=== PATIENT | male | born 1975 | race Caucasian/White ===

== ENCOUNTER → 2020-11-28 | Outpatient (CLI) | payer OTHER | LOC: EMI 11-24 08:45 → MRI 13:24 | DX: S32.020A Wedge compression fracture of second lumbar vertebra, initial encounter for closed fracture (principal); M51.36 Other intervertebral disc degeneration, lumbar region; X58.XXXA Exposure to other specified factors, initial encounter | CPT/HCPCS: 72148 ==

== ENCOUNTER → 2020-12-09 | Outpatient (CLI) | payer OTHER | LOC: CT 08:23 | DX: S32.020A Wedge compression fracture of second lumbar vertebra, initial encounter for closed fracture (principal); X58.XXXA Exposure to other specified factors, initial encounter | CPT/HCPCS: 72131 ==

== ENCOUNTER → 2021-02-17 | Outpatient (CLI) | payer OTHER | LOC: KOH-I 15:00 | DX: M48.56XA Collapsed vertebra, not elsewhere classified, lumbar region, initial encounter for fracture (principal) | CPT/HCPCS: 72131 ==

== ENCOUNTER → 2021-05-08 | Outpatient (CLI) | payer OTHER | LOC: KOH-I 13:53 | DX: M51.16 Intervertebral disc disorders with radiculopathy, lumbar region (principal); M48.061 Spinal stenosis, lumbar region without neurogenic claudication; R93.7 Abnormal findings on diagnostic imaging of other parts of musculoskeletal system | CPT/HCPCS: 72148 ==

== ENCOUNTER → 2021-07-16 | Outpatient (CLI) | payer OTHER | LOC: ECHO 07-15 08:30 → HEART 5 07:23 | DX: I20.8 Other forms of angina pectoris (principal); R06.02 Shortness of breath | CPT/HCPCS: 78452; A9502; J2785 ==

== ENCOUNTER → 2021-08-05 | Outpatient (CLI) | payer OTHER | LOC: ECHO 07-16 09:45 | DX: I20.8 Other forms of angina pectoris (principal); R06.02 Shortness of breath; I51.7 Cardiomegaly | CPT/HCPCS: ECHO; 93306 ==

== ENCOUNTER 2021-09-05 15:44 | Inpatient (IN) | payer OTHER ==
[~2021-09-05] VITALS: Ht 180.3 cm; Wt 127.0 kg
[2021-09-05 17:22] LABS: HEMOGLOBIN 12.6 gm/dl (14.0-17.5); RED BLOOD COUNT 4.62 M/UL (4.20-5.50); WHITE BLOOD COUNT 15.6 K/UL (4.5-11.0)
[2021-09-05 19:14] LABS: BUN/CREATININE RATIO 18 (0-10)
[2021-09-06] MEDS ORDERED: NOVOLOG 10100 UNITS1 INJ (03:41)
[2021-09-06] MEDS ORDERED: LISINOPRIL40 MG PO (03:41)
[2021-09-06] MEDS ORDERED: LIPITOR40 MG PO (03:42)
[2021-09-06] MEDS ORDERED: NORVASC5 MG PO (03:44)
[2021-09-06] MEDS ORDERED: METOPROLOL TART50 MG PO (03:45)
[2021-09-06] MEDS ORDERED: ADULT LOW DOSE81 MG PO (03:46)
[2021-09-06 08:34] LABS: ACINETOBACTER BAUMANNII Not Detected (Negative); CANDIDA ALBICANS Not Detected (Negative); CANDIDA KRUSEI Not Detected (Negative); CANDIDA TROPICALIS Not Detected (Negative); ENTEROCOCCUS Not Detected (Negative); ESCHERICHIA COLI Not Detected (Negative); HAEMOPHILUS INFLUENZAE Not Detected (Negative); KLEBSIELLA OXYTOCA Not Detected (Negative); KLEBSIELLA PNEUMONIAE Not Detected (Negative); KPC-CARBAPENEM-RESISTANCE GENE Not Detected (Negative); PROTEUS Not Detected (Negative); PSEUDOMONAS AERUGINOSA Not Detected (Negative); SERRATIA MARCESANS Not Detected (Negative); STREP AGALACTIAE (GROUP B) Not Detected (Negative); STREP PYOGENES (GROUP A) Not Detected (Negative); STREPTOCOCCUS Not Detected (Negative); mecA (METHICILLIN RESIST GENE Not Detected (Negative); vanA/B (VANCOMYCIN RESIST GENE Not Detected (Negative)
[2021-09-06 10:04] LABS: STAPHYLOCOCCUS DETECTED (Negative); STAPHYLOCOCCUS AUREUS DETECTED (Negative)
[2021-09-07 05:56] LABS: WHITE BLOOD COUNT 15.3 K/UL (4.5-11.0)
[2021-09-07 06:19] LABS: BUN/CREATININE RATIO 16 (0-10)
[2021-09-07 06:24] LABS: HEMOGLOBIN 10.3 gm/dl (14.0-17.5); RED BLOOD COUNT 3.83 M/UL (4.20-5.50)
[2021-09-07] MEDS ORDERED: LANTUS SOL100 UNIT/1 SQ (14:38)
[2021-09-07] MEDS ORDERED: CYCLOBENZAPRINE5 MG PO (14:39)
[2021-09-07] MEDS ORDERED: GABAPENTIN300 MG PO (14:40)
[2021-09-08 07:37] LABS: HEMOGLOBIN 10.4 gm/dl (14.0-17.5); RED BLOOD COUNT 4.03 M/UL (4.20-5.50); WHITE BLOOD COUNT 12.8 K/UL (4.5-11.0)
[2021-09-08 07:58] LABS: BUN/CREATININE RATIO 16 (0-10)
[2021-09-09 05:36] LABS: HEMOGLOBIN 9.6 gm/dl (14.0-17.5); RED BLOOD COUNT 3.68 M/UL (4.20-5.50); WHITE BLOOD COUNT 10.2 K/UL (4.5-11.0)
--- NOTE | 2021-09-09 11:32 | NUR ---
dr. perez seen patient and aware of the left foot condition
[2021-09-10 07:04] LABS: HEMOGLOBIN 10.6 gm/dl (14.0-17.5); RED BLOOD COUNT 3.96 M/UL (4.20-5.50)
[2021-09-10 07:06] LABS: WHITE BLOOD COUNT 13.2 K/UL (4.5-11.0)
[2021-09-11 06:37] LABS: HEMOGLOBIN 10.3 gm/dl (14.0-17.5); RED BLOOD COUNT 3.83 M/UL (4.20-5.50); WHITE BLOOD COUNT 10.4 K/UL (4.5-11.0)
[2021-09-12 09:56] LABS: HEMOGLOBIN 9.9 gm/dl (14.0-17.5); RED BLOOD COUNT 3.67 M/UL (4.20-5.50); WHITE BLOOD COUNT 7.9 K/UL (4.5-11.0)
[2021-09-12 10:14] LABS: BUN/CREATININE RATIO 13 (0-10)
--- NOTE | 2021-09-12 21:55 | NUR ---
ATTEMPTED TO CALL DR. DOS SANTOS ABOUT CHANGING PT'S DRESSING. CALL WENT STRAIGHT TO VOICE MAIL. LEFT MESSAGE. WILL CONTINUE TO MONITOR PT.
[2021-09-13 08:59] LABS: HEMOGLOBIN 10.4 gm/dl (14.0-17.5); RED BLOOD COUNT 3.99 M/UL (4.20-5.50); WHITE BLOOD COUNT 6.4 K/UL (4.5-11.0)
[2021-09-13 09:18] LABS: BUN/CREATININE RATIO 10 (0-10)
[2021-09-14 08:02] LABS: HEMOGLOBIN 10.1 gm/dl (14.0-17.5); RED BLOOD COUNT 3.83 M/UL (4.20-5.50); WHITE BLOOD COUNT 8.2 K/UL (4.5-11.0)
[2021-09-14 08:11] LABS: BUN/CREATININE RATIO 15 (0-10)
[2021-09-15 07:34] LABS: HEMOGLOBIN 10.6 gm/dl (14.0-17.5); RED BLOOD COUNT 4.06 M/UL (4.20-5.50); WHITE BLOOD COUNT 6.6 K/UL (4.5-11.0)
[2021-09-15 08:01] LABS: BUN/CREATININE RATIO 14 (0-10)
[2021-09-16] MEDS ORDERED: INVANZ 1 GM VIAL1 GM IV (16:11)
== END 2021-09-16 18:39 | disposition home or self-care (01) | DRG 853 ==
LOC: ER1 15:44 → M/S 09-06 00:33 → CDU 09-06 00:33 → M/S 09-06 02:43
PROVIDERS: Nurse Practitioner; Physician Assistant; Physician Assistant Medical; Podiatrist Foot & Ankle Surgery; ADMIT Internal Medicine
PROC: 0L9W0ZZ Drainage of Left Foot Tendon, Open Approach (ICD-10-PCS; 2021-09-09)
PROC: 0QBH0ZX Excision of Left Tibia, Open Approach, Diagnostic (ICD-10-PCS; 2021-09-13)
PROC: 0QBH0ZZ Excision of Left Tibia, Open Approach (ICD-10-PCS; 2021-09-13)
PROC: 0S9N0ZZ Drainage of Left Metatarsal-Phalangeal Joint, Open Approach (ICD-10-PCS; principal; 2021-09-13 17:04)
PROC: 02HV33Z Insertion of Infusion Device into Superior Vena Cava, Percutaneous Approach (ICD-10-PCS; 2021-09-16)
PROC: B548ZZA Ultrasonography of Superior Vena Cava, Guidance (ICD-10-PCS; 2021-09-16)
DX: A41.01 Sepsis due to Methicillin susceptible Staphylococcus aureus (principal); A48.0 Gas gangrene; L03.116 Cellulitis of left lower limb; L02.612 Cutaneous abscess of left foot; Z20.822 Contact with and (suspected) exposure to COVID-19; M86.172 Other acute osteomyelitis, left ankle and foot; N17.9 Acute kidney failure, unspecified; E11.52 Type 2 diabetes mellitus with diabetic peripheral angiopathy with gangrene; E87.1 Hypo-osmolality and hyponatremia; R65.20 Severe sepsis without septic shock; E11.22 Type 2 diabetes mellitus with diabetic chronic kidney disease; M10.9 Gout, unspecified; G89.29 Other chronic pain; E11.65 Type 2 diabetes mellitus with hyperglycemia; N18.30 Chronic kidney disease, stage 3 unspecified; E78.5 Hyperlipidemia, unspecified; I12.9 Hypertensive chronic kidney disease with stage 1 through stage 4 chronic kidney disease, or unspecified chronic kidney disease; E87.5 Hyperkalemia; E11.69 Type 2 diabetes mellitus with other specified complication; Z79.4 Long term (current) use of insulin; Z79.82 Long term (current) use of aspirin; Z88.1 Allergy status to other antibiotic agents; Z88.0 Allergy status to penicillin
CPT/HCPCS: 36415; 71045; 73620; 73701; 73718; 80048; 80053; 80202; 81001; 82009; 82550; 82553; 82962; 83605; 83735; 83874; 84439; 84443; 84484; 84550; 85025; 85027; 85379; 85610; 85652; 85730; 86140; 87040; 87070; 87077; 87150; 87186; 87205; 93005; 93926; 94664; 94760; 96365; 96375; 99285; C1751; J1100; J1335; J1650; J1885; J1956; J2001; J2020; J2250; J2270; J2370; J2405; J2704; J2795; J3010; J3370; J7030; J7050; J7070; J7120; Q9967; U0002

== ENCOUNTER → 2021-09-17 | Outpatient (CLI) | payer OTHER ==
[~2021-09-17] MED LIST: ADULT LOW DOSE81 MG PO; CYCLOBENZAPRINE5 MG PO; GABAPENTIN300 MG PO; INVANZ 1 GM VIAL1 GM IV; LANTUS SOL100 UNIT/1 SQ; LIPITOR40 MG PO; LISINOPRIL40 MG PO; METOPROLOL TART50 MG PO; NORVASC5 MG PO; NOVOLOG 10100 UNITS1 INJ
== END ==
LOC: OPSV 07:00
DX: L03.116 Cellulitis of left lower limb (principal); A41.9 Sepsis, unspecified organism; E11.9 Type 2 diabetes mellitus without complications; I12.9 Hypertensive chronic kidney disease with stage 1 through stage 4 chronic kidney disease, or unspecified chronic kidney disease; E11.22 Type 2 diabetes mellitus with diabetic chronic kidney disease; N18.30 Chronic kidney disease, stage 3 unspecified; E87.1 Hypo-osmolality and hyponatremia; E78.5 Hyperlipidemia, unspecified; M54.9 Dorsalgia, unspecified; G89.29 Other chronic pain
CPT/HCPCS: 96365; J1335

== ENCOUNTER → 2021-09-18 | Outpatient (CLI) | payer OTHER | LOC: OPSV 07:00 | DX: M86.171 Other acute osteomyelitis, right ankle and foot (principal) | CPT/HCPCS: 96365; J1335 ==

== ENCOUNTER → 2021-09-19 | Outpatient (CLI) | payer OTHER | LOC: OPSV 07:20 | DX: M86.171 Other acute osteomyelitis, right ankle and foot (principal) | CPT/HCPCS: 96365 ==

== ENCOUNTER → 2021-09-20 | Outpatient (CLI) | payer OTHER | LOC: OPSV 07:16 | DX: M86.171 Other acute osteomyelitis, right ankle and foot (principal) | CPT/HCPCS: 96365; J1335 ==

== ENCOUNTER → 2021-09-20 | Outpatient (CLI) | payer OTHER | LOC: OPSV 18:49 | DX: M86.171 Other acute osteomyelitis, right ankle and foot (principal) | CPT/HCPCS: G0463; J1335 ==

== ENCOUNTER → 2021-09-21 | Outpatient (CLI) | payer OTHER | LOC: OPSV 07:00 | DX: M86.171 Other acute osteomyelitis, right ankle and foot (principal) | CPT/HCPCS: 96365; J1335 ==

== ENCOUNTER → 2021-09-22 | Outpatient (CLI) | payer OTHER | LOC: EROP 02:59 → ER1 18:59 → EDSTATUS 19:11 | DX: M86.171 Other acute osteomyelitis, right ankle and foot (principal) | CPT/HCPCS: G0463 ==

== ENCOUNTER → 2021-09-22 | Outpatient (CLI) | payer OTHER | LOC: OPSV 07:00 | DX: M86.171 Other acute osteomyelitis, right ankle and foot (principal) | CPT/HCPCS: 96365; J1335 ==

== ENCOUNTER → 2021-09-23 | Outpatient (CLI) | payer OTHER | LOC: OPSV 07:00 | DX: M86.171 Other acute osteomyelitis, right ankle and foot (principal) | CPT/HCPCS: 96365; J1335 ==

== ENCOUNTER → 2021-09-24 | Outpatient (CLI) | payer OTHER | LOC: OPSV 07:00 | DX: M86.171 Other acute osteomyelitis, right ankle and foot (principal) | CPT/HCPCS: 96365; J1335 ==

== ENCOUNTER → 2021-09-25 | Outpatient (CLI) | payer OTHER | LOC: OPSV 07:11 | DX: M86.171 Other acute osteomyelitis, right ankle and foot (principal) | CPT/HCPCS: 96365; J1335 ==

== ENCOUNTER → 2021-09-26 | Outpatient (CLI) | payer OTHER | LOC: EROP 18:38 → OPSV 19:00 | DX: M86.171 Other acute osteomyelitis, right ankle and foot (principal) | CPT/HCPCS: G0463 ==

== ENCOUNTER → 2021-09-27 | Outpatient (CLI) | payer OTHER | LOC: OPSV 18:35 | DX: M86.171 Other acute osteomyelitis, right ankle and foot (principal) | CPT/HCPCS: G0463 ==

== ENCOUNTER → 2021-09-27 | Outpatient (CLI) | payer OTHER ==
[~2021-09-27] VITALS: Ht 180.3 cm; Wt 127.0 kg
== END ==
LOC: OPSV 07:00 → EROP 07:00
DX: M86.171 Other acute osteomyelitis, right ankle and foot (principal)
CPT/HCPCS: 96365; J1335

== ENCOUNTER → 2021-09-28 | Outpatient (CLI) | payer OTHER | LOC: OPSV 07:00 | DX: M86.171 Other acute osteomyelitis, right ankle and foot (principal) | CPT/HCPCS: 96365; J1335 ==

== ENCOUNTER → 2021-09-29 | Outpatient (CLI) | payer OTHER | LOC: OPSV 07:00 | DX: M86.171 Other acute osteomyelitis, right ankle and foot (principal) | CPT/HCPCS: 85652; 86140; 96365; J1335 ==

== ENCOUNTER → 2021-09-30 | Outpatient (CLI) | payer OTHER | LOC: OPSV 07:00 | DX: E11.69 Type 2 diabetes mellitus with other specified complication (principal); M86.9 Osteomyelitis, unspecified; L03.116 Cellulitis of left lower limb; L02.612 Cutaneous abscess of left foot; I96 Gangrene, not elsewhere classified; E78.5 Hyperlipidemia, unspecified; E11.22 Type 2 diabetes mellitus with diabetic chronic kidney disease; I12.9 Hypertensive chronic kidney disease with stage 1 through stage 4 chronic kidney disease, or unspecified chronic kidney disease; N18.30 Chronic kidney disease, stage 3 unspecified; G89.29 Other chronic pain; M54.9 Dorsalgia, unspecified | CPT/HCPCS: 96365; J1335 ==

== ENCOUNTER → 2021-10-01 | Outpatient (CLI) | payer OTHER ==
[~2021-10-01] VITALS: Ht 180.3 cm; Wt 127.0 kg
== END ==
LOC: EROP 12:10 → OPSV 19:00
DX: M86.171 Other acute osteomyelitis, right ankle and foot (principal)
CPT/HCPCS: 96365; J1335

== ENCOUNTER → 2021-10-02 | Outpatient (CLI) | payer OTHER | LOC: OPSV 07:00 | DX: M86.171 Other acute osteomyelitis, right ankle and foot (principal) | CPT/HCPCS: 96365; J1335 ==

== ENCOUNTER → 2021-10-04 | Outpatient (CLI) | payer OTHER ==
[~2021-10-04] VITALS: Ht 180.3 cm; Wt 127.0 kg
== END ==
LOC: OPSV 07:00
DX: M86.171 Other acute osteomyelitis, right ankle and foot (principal)
CPT/HCPCS: 96365; J1335

== ENCOUNTER → 2021-10-05 | Outpatient (CLI) | payer OTHER | LOC: OPSV 07:09 | DX: M86.171 Other acute osteomyelitis, right ankle and foot (principal) | CPT/HCPCS: 96365; J1335 ==

== ENCOUNTER → 2021-10-06 | Outpatient (CLI) | payer OTHER ==
[~2021-10-06] VITALS: Ht 180.3 cm; Wt 127.0 kg
== END ==
LOC: OPSV 07:00
DX: A41.9 Sepsis, unspecified organism (principal); E11.69 Type 2 diabetes mellitus with other specified complication; M86.171 Other acute osteomyelitis, right ankle and foot; I12.9 Hypertensive chronic kidney disease with stage 1 through stage 4 chronic kidney disease, or unspecified chronic kidney disease; E11.22 Type 2 diabetes mellitus with diabetic chronic kidney disease; N18.30 Chronic kidney disease, stage 3 unspecified; E78.5 Hyperlipidemia, unspecified
CPT/HCPCS: 96365; J1335

== ENCOUNTER → 2021-10-07 | Outpatient (CLI) | payer OTHER ==
[2021-10-07 09:00] LABS: HEMOGLOBIN 11.2 gm/dl (14.0-17.5); RED BLOOD COUNT 4.15 M/UL (4.20-5.50); WHITE BLOOD COUNT 6.7 K/UL (4.5-11.0)
== END ==
LOC: OPSV 07:00
PROVIDERS: Internal Medicine Infectious Disease
DX: M86.171 Other acute osteomyelitis, right ankle and foot (principal)
CPT/HCPCS: 85027; 85652; 86140; 96365; J1335

== ENCOUNTER → 2021-10-08 | Outpatient (CLI) | payer OTHER | LOC: OPSV 07:00 | DX: M86.171 Other acute osteomyelitis, right ankle and foot (principal) | CPT/HCPCS: 96365; J1335 ==

== ENCOUNTER → 2021-10-12 | Outpatient (CLI) | payer OTHER | LOC: OPSV 07:00 | DX: M86.9 Osteomyelitis, unspecified (principal) | CPT/HCPCS: 96365 ==

== ENCOUNTER → 2021-10-13 | Outpatient (CLI) | payer OTHER | LOC: OPSV 07:00 | DX: M86.171 Other acute osteomyelitis, right ankle and foot (principal) | CPT/HCPCS: 96365; J1335 ==

== ENCOUNTER → 2021-10-14 | Outpatient (CLI) | payer OTHER ==
[~2021-10-14] VITALS: Ht 180.3 cm; Wt 127.0 kg
[2021-10-14 09:12] LABS: HEMOGLOBIN 11.9 gm/dl (14.0-17.5); RED BLOOD COUNT 4.44 M/UL (4.20-5.50); WHITE BLOOD COUNT 7.4 K/UL (4.5-11.0)
== END ==
LOC: OPSV 07:00
PROVIDERS: Internal Medicine Infectious Disease
DX: M86.171 Other acute osteomyelitis, right ankle and foot (principal)
CPT/HCPCS: 85027; 85652; 86140; 96365; J1335

== ENCOUNTER → 2021-10-15 | Outpatient (CLI) | payer OTHER ==
[~2021-10-15] VITALS: Ht 180.3 cm; Wt 127.0 kg
== END ==
LOC: OPSV 07:00
DX: M86.171 Other acute osteomyelitis, right ankle and foot (principal)
CPT/HCPCS: 96365; J1335

== ENCOUNTER → 2021-10-19 | Outpatient (CLI) | payer OTHER | LOC: OPSV 07:00 | DX: M86.8X7 Other osteomyelitis, ankle and foot (principal) | CPT/HCPCS: J1335 ==

== ENCOUNTER → 2021-10-20 | Outpatient (CLI) | payer OTHER ==
[~2021-10-20] VITALS: Ht 180.3 cm; Wt 127.0 kg
== END ==
LOC: OPSV 06:59
DX: A41.9 Sepsis, unspecified organism (principal); E11.69 Type 2 diabetes mellitus with other specified complication; M86.171 Other acute osteomyelitis, right ankle and foot; I12.9 Hypertensive chronic kidney disease with stage 1 through stage 4 chronic kidney disease, or unspecified chronic kidney disease; E11.22 Type 2 diabetes mellitus with diabetic chronic kidney disease; N18.30 Chronic kidney disease, stage 3 unspecified; M54.9 Dorsalgia, unspecified; G89.29 Other chronic pain
CPT/HCPCS: 96365; J1335

== ENCOUNTER → 2021-10-21 | Outpatient (CLI) | payer OTHER | LOC: OPSV 09-20 07:09 | DX: E11.69 Type 2 diabetes mellitus with other specified complication (principal); M86.9 Osteomyelitis, unspecified; L02.612 Cutaneous abscess of left foot | CPT/HCPCS: 87070; 87205; 96365; J1335 ==

== ENCOUNTER → 2021-10-23 | Outpatient (CLI) | payer OTHER ==
[~2021-10-23] VITALS: Ht 180.3 cm; Wt 127.0 kg
[2021-10-23 07:45] LABS: HEMOGLOBIN 11.4 gm/dl (14.0-17.5); RED BLOOD COUNT 4.33 M/UL (4.20-5.50); WHITE BLOOD COUNT 6.8 K/UL (4.5-11.0)
== END ==
LOC: OPSV 06:58
PROVIDERS: Podiatrist Foot & Ankle Surgery
DX: M86.171 Other acute osteomyelitis, right ankle and foot (principal); Z00.00 Encounter for general adult medical examination without abnormal findings
CPT/HCPCS: 85027; 85652; 86140; 96365; J1335

== ENCOUNTER → 2021-10-25 | Outpatient (CLI) | payer OTHER ==
[~2021-10-25] VITALS: Ht 180.3 cm; Wt 127.0 kg
== END ==
LOC: EROP 06:58 → OPSV 07:00
DX: M86.171 Other acute osteomyelitis, right ankle and foot (principal)
CPT/HCPCS: 96365; J1335

== ENCOUNTER → 2021-10-27 | Outpatient (CLI) | payer OTHER ==
[~2021-10-27] VITALS: Ht 180.3 cm; Wt 127.0 kg
== END ==
LOC: OPSV 07:00
DX: M86.9 Osteomyelitis, unspecified (principal)
CPT/HCPCS: 96365; J1335

== ENCOUNTER → 2021-10-28 | Outpatient (CLI) | payer OTHER ==
[~2021-10-28] VITALS: Ht 180.3 cm; Wt 127.0 kg
== END ==
LOC: OPSV 07:00
DX: S91.302A Unspecified open wound, left foot, initial encounter (principal)
CPT/HCPCS: 96365; J1335

== ENCOUNTER → 2021-10-29 | Outpatient (CLI) | payer OTHER ==
[~2021-10-29] VITALS: Ht 180.3 cm; Wt 127.0 kg
== END ==
LOC: OPSV 07:00
DX: M86.9 Osteomyelitis, unspecified (principal)
CPT/HCPCS: 96365; J1335

== ENCOUNTER → 2021-11-03 | Outpatient (CLI) | payer OTHER ==
[~2021-11-03] VITALS: Ht 180.3 cm; Wt 127.0 kg
[2021-11-03 07:42] LABS: HEMOGLOBIN 12.4 gm/dl (14.0-17.5); RED BLOOD COUNT 4.73 M/UL (4.20-5.50); WHITE BLOOD COUNT 4.4 K/UL (4.5-11.0)
== END ==
LOC: OPSV 07:00
PROVIDERS: Internal Medicine Infectious Disease
DX: S91.302A Unspecified open wound, left foot, initial encounter (principal)
CPT/HCPCS: 85027; 85652; 86140; 96365; J1335

== ENCOUNTER → 2021-11-18 | Outpatient (CLI) | payer OTHER ==
[~2021-11-18] MED LIST changes: +BACTRIM DS TAB1 EACH PO; +CBD CAPSULE PO; +CYCLOBENZAPRINE10 MG PO; +CYMBALTA60 MG PO; +LISINOPRIL10 MG PO; +WELLBUTRIN SR150 M1 PO
[2021-11-18 10:22] LABS: HEMOGLOBIN 13.1 gm/dl (14.0-17.5); RED BLOOD COUNT 5.01 M/UL (4.20-5.50); WHITE BLOOD COUNT 6.9 K/UL (4.5-11.0)
== END ==
LOC: LAB 09:46
PROVIDERS: Podiatrist Foot & Ankle Surgery
DX: Z53.9 Procedure and treatment not carried out, unspecified reason (principal)
CPT/HCPCS: 36415; 85027; 85652; 86140

== ENCOUNTER → 2021-11-18 | Outpatient (CLI) | payer OTHER ==
[~2021-11-18] MED LIST changes: -BACTRIM DS TAB1 EACH PO; -CBD CAPSULE PO; -CYCLOBENZAPRINE10 MG PO; -CYMBALTA60 MG PO; -LISINOPRIL10 MG PO; -WELLBUTRIN SR150 M1 PO
== END ==
LOC: EMI 08:00
DX: M86.9 Osteomyelitis, unspecified (principal); M87.078 Idiopathic aseptic necrosis of left toe(s); Z98.890 Other specified postprocedural states; Z98.1 Arthrodesis status; R93.6 Abnormal findings on diagnostic imaging of limbs
CPT/HCPCS: 73718

== ENCOUNTER → 2021-11-30 | Outpatient (CLI) | payer OTHER ==
[~2021-11-30] MED LIST changes: +CBD CAPSULE PO; +CYCLOBENZAPRINE10 MG PO; +CYMBALTA60 MG PO; +LISINOPRIL10 MG PO; +WELLBUTRIN SR150 M1 PO
[2021-11-30 14:19] LABS: HEMOGLOBIN 12.9 gm/dl (14.0-17.5); RED BLOOD COUNT 4.89 M/UL (4.20-5.50); WHITE BLOOD COUNT 7.3 K/UL (4.5-11.0)
== END ==
LOC: OPSV2 12:30
PROVIDERS: Podiatrist Foot & Ankle Surgery
DX: Z01.812 Encounter for preprocedural laboratory examination (principal); M86.9 Osteomyelitis, unspecified
CPT/HCPCS: 80048; 83036; 85027

== ENCOUNTER → 2021-12-25 | Outpatient (CLI) | payer OTHER ==
[~2021-12-25] VITALS: Ht 180.3 cm; Wt 127.0 kg
[~2021-12-25] MED LIST changes: +BACTRIM DS TAB1 EACH PO
== END ==
LOC: OPSV 12:00
DX: M79.89 Other specified soft tissue disorders (principal); L02.612 Cutaneous abscess of left foot
CPT/HCPCS: 96365; 96366; J2407; J7070

== ENCOUNTER 2022-01-05 09:54 | Emergency (ER) | payer OTHER ==
[2022-01-05 10:58] LABS: RED BLOOD COUNT 4.13 M/UL (4.20-5.50); WHITE BLOOD COUNT 6.5 K/UL (4.5-11.0)
== END 2022-01-05 12:42 | disposition home or self-care (01) ==
LOC: ER1 09:54
PROVIDERS: Nurse Practitioner
DX: I12.9 Hypertensive chronic kidney disease with stage 1 through stage 4 chronic kidney disease, or unspecified chronic kidney disease (principal); E11.22 Type 2 diabetes mellitus with diabetic chronic kidney disease; N18.9 Chronic kidney disease, unspecified; Z88.0 Allergy status to penicillin
CPT/HCPCS: 71045; 80053; 82550; 82553; 84484; 85025; 93005; 99285

== ENCOUNTER 2022-02-09 14:48 | Observation (INO) | payer OTHER ==
[~2022-02-09] VITALS: Ht 180.3 cm; Wt 117.9 kg
[~2022-02-09 14:48] MED LIST changes: -NOVOLOG 10100 UNITS1 INJ; +NOVOLOG 10100 UNITS1 SQ
[2022-02-09 15:34] LABS: HEMOGLOBIN 11.1 gm/dl (14.0-17.5); RED BLOOD COUNT 4.08 M/UL (4.20-5.50); WHITE BLOOD COUNT 7.4 K/UL (4.5-11.0)
[2022-02-10 03:22] LABS: HEMOGLOBIN 9.4 gm/dl (14.0-17.5); RED BLOOD COUNT 3.37 M/UL (4.20-5.50); WHITE BLOOD COUNT 5.4 K/UL (4.5-11.0)
[2022-02-10] MEDS ORDERED: TIZANIDINE HCL4 MG PO (10:26)
[2022-02-10] MEDS ORDERED: DIALYVITE VIT125 MCG PO (10:26)
[2022-02-10] MEDS ORDERED: ONDANSETRON ODT4 MG PO (10:27)
[2022-02-10] MEDS ORDERED: METOPROLOL TART50 MG PO (10:27)
[2022-02-10] MEDS ORDERED: IBU800 MG PO (10:27)
[2022-02-10] MEDS ORDERED: MYCOSTATIN CREA15 GM TOP (10:28)
[2022-02-11 07:54] LABS: HEMOGLOBIN 9.7 gm/dl (14.0-17.5); RED BLOOD COUNT 3.52 M/UL (4.20-5.50); WHITE BLOOD COUNT 5.7 K/UL (4.5-11.0)
[2022-02-11 07:56] LABS: BUN/CREATININE RATIO 21 (0-10)
== END 2022-02-11 11:30 | disposition home or self-care (01) ==
LOC: ER1 14:48 → CDU 19:11 → M/S 02-10 09:20
PROVIDERS: Emergency Medicine; Internal Medicine; Internal Medicine Nephrology; ADMIT Internal Medicine
DX: E87.5 Hyperkalemia (principal); Z20.822 Contact with and (suspected) exposure to COVID-19; N17.9 Acute kidney failure, unspecified; E11.22 Type 2 diabetes mellitus with diabetic chronic kidney disease; I12.9 Hypertensive chronic kidney disease with stage 1 through stage 4 chronic kidney disease, or unspecified chronic kidney disease; N18.2 Chronic kidney disease, stage 2 (mild); M25.512 Pain in left shoulder; E78.5 Hyperlipidemia, unspecified; E87.2 Acidosis; Z79.4 Long term (current) use of insulin; Z79.899 Other long term (current) drug therapy; Z88.0 Allergy status to penicillin; Z88.8 Allergy status to other drugs, medicaments and biological substances
CPT/HCPCS: 36415; 71045; 73030; 80053; 82436; 82550; 82553; 82570; 82728; 82962; 83540; 83550; 84133; 84156; 84300; 84484; 85025; 85027; 93005; 96365; 96372; 99284; G0378; J1644; J7030; P9047; U0002

== ENCOUNTER → 2022-03-02 | Outpatient (CLI) | payer OTHER ==
[~2022-03-02] MED LIST changes: +DIALYVITE VIT125 MCG PO; +IBU800 MG PO; +MYCOSTATIN CREA15 GM TOP; +ONDANSETRON ODT4 MG PO; +TIZANIDINE HCL4 MG PO
== END ==
LOC: KOH-I 15:05
DX: S32.010G Wedge compression fracture of first lumbar vertebra, subsequent encounter for fracture with delayed healing (principal); M51.24 Other intervertebral disc displacement, thoracic region; X58.XXXD Exposure to other specified factors, subsequent encounter
CPT/HCPCS: 72146

== ENCOUNTER → 2022-07-02 | Outpatient (CLI) | payer OTHER | LOC: EMI 11:00 | DX: M25.512 Pain in left shoulder (principal); M67.912 Unspecified disorder of synovium and tendon, left shoulder | CPT/HCPCS: 73221 ==